=== PATIENT | male | born 1980 | race Two or more races ===

== ENCOUNTER 2024-04-02 05:08 | Day surgery (SDC) | payer OTHER ==
[2024-03-29 11:00] VITALS: BP 116/79
[~2024-04-02] VITALS: Ht 180.3 cm; Wt 143.3 kg
[~2024-04-02 05:08] MED LIST: ZEPBOUND7.5 MG/0.5
[2024-04-02] MEDS ORDERED: BUPIVACAINE HCL 30 ML VIAL IJ ONE (08:15)
[2024-04-02] MEDS ORDERED: HEMOSTATIC MATRIX 1 KIT KIT TOP ONE (08:15)
[2024-04-02] MEDS ORDERED: METRONIDAZOLE/SODIUM CHLORIDE 500 MG/100 ML PIGGYBACK IV ONE (08:15)
[2024-04-02] MEDS ORDERED: POVIDONE-IODINE 118 ML BOTT TOP ONE (08:15)
[2024-04-02] MEDS ORDERED: CEFTRIAXONE SODIUM 2,000 MG VIAL IV ONE (08:15)
[2024-04-02] MEDS ORDERED: DIBUCAINE 15 GM OINT..GM. TUBE RECTAL ONE (08:15)
[2024-04-02] MEDS ORDERED: TAMSULOSIN HCL 0.4 MG CAP PO ONE (12:00)
[2024-04-02] MEDS ORDERED: OXYCODONE HCL5 MG PO (12:19)
[2024-04-02] MEDS ORDERED: MORPHINE SULFATE 4 MG/ML VIAL IV ONE (14:30)
== END 2024-04-02 15:30 | disposition home or self-care (01) ==
LOC: CIR.AMB 05:08
PROVIDERS: ATTEND Surgery
DX: K60.1 Chronic anal fissure (principal); K62.4 Stenosis of anus and rectum; K62.5 Hemorrhage of anus and rectum; H52.209 Unspecified astigmatism, unspecified eye